=== PATIENT | male | born 1960 | race Caucasian/White ===

== ENCOUNTER 2017-01-06 20:43 | Emergency (ER) | payer OTHER ==
[~2017-01-06] VITALS: Ht 186.7 cm; Wt 108.0 kg
[~2017-01-06 20:43] MED LIST: AUGMENTIN 875 M1 TAB PO; BACTRIM DS 8001 TAB PO; FOLIC ACID 1 MG PO; IRON324 MG PO; MOTRIN 400MG (400 MG PO; MULTIVITAMIN1 TA1 PO; PRILOSEC 20MG C20 MG PO; TRAMADOL50 MG PO; TRIAMCINOL0.1 %/453 TOP; VICODIN5-300 PO; VITAMIN B1100 MG PO
[2017-01-06] MEDS ORDERED: SPIRONOLACTONE100 M1 PO (22:03)
[2017-01-06] MEDS ORDERED: GABAPENTIN300 M2 PO (22:04)
[2017-01-06] MEDS ORDERED: FUROSEMIDE40 M1 PO (22:04)
[2017-01-06 22:09] LABS: ABSOLUTE BASOPHIL COUNT 0 /CUMM (0.0-0.2); ABSOLUTE EOSINOPHIL COUNT 0.1 /CUMM (0.0-0.7); ABSOLUTE GRANULOCYTE CT 6.7 /CUMM (1.4-6.5); ABSOLUTE LYMPH COUNT 0.9 /CUMM (1.2-3.4); ABSOLUTE MONOCYTE COUNT 1.1 /CUMM (0.10-0.60); BASOPHIL % 0.5 % (0.0-2.0); EOSINOPHIL % 0.9 % (0-5); GRANULOCYTE % 76.1 % (42.2-75.2); HEMATOCRIT 30.7 % (42-52); MEAN CORPUSCULAR HGB 27.4 PG (27.0-31.0); MEAN CORPUSCULAR HGB CONC 32.3 G/DL (33.0-37.0); MEAN CORPUSCULAR VOLUME 84.6 FL (80.0-94.0); MEAN PLATELET VOLUME 8.5 FL (7.4-10.4); PLATELET COUNT 255 /CUMM (130-400); RBC DISTRIBUTION WIDTH 16.9 % (11.5-14.5); RED BLOOD CELL CT 3.63 /CUMM (4.70-6.10); WHITE BLOOD CELL COUNT 8.8 /CUMM (4.8-10.8)
[2017-01-06 22:23] LABS: PT 12.4 SEC (9.4-12.5); PTT 30 SEC (25-37)
--- NOTE | 2017-01-06 22:24 | ED GI/GU/ABDOMINAL COMPLAINT ---
History of Present Illness General Chief Complaint: Abdominal Pain/Flank Pain Stated Complaint: NEEDS STOMACH TAPPED Source: patient Exam Limitations: no limitations Vital Signs & Intake/Output Vital Signs & Intake/Output Vital Signs Date Time Temp Pulse Resp B/P B/P Pulse O2 O2 Flow FiO2 Mean Ox Delivery Rate 01/07 2052 99.3 94 20 138/79 94 Room Air ED Intake and Output 01/07 0000 01/06 1200 Intake Total Output Total Balance Patient 238 lb Weight Weight Reported by Patient Measurement Method Allergies Coded Allergies: No Known Allergies (01/06/17) Reconcile Medications AMOXICILLIN/POTASSIUM CLAV (Augmentin 875-125 Tablet) 875 MG/125 MG TAB 1 TAB PO BID CELLULITIS Furosemide 40 MG TABLET 1 TAB PO DAILY FLUID (Reported) Gabapentin 300 MG CAPSULE 1 CAP PO TID NEUROPATHY (Reported) HYDROCODONE/ACETAMINOPHEN (Hydrocodon-Acetaminophen 5-325) 1 EACH TABLET 1 TAB PO Q6HR PRN PAIN Oxycodone HCl 5 MG TABLET 1-2 TAB PO Q6P PRN PAIN Spironolactone 100 MG TABLET 1 TAB PO DAILY RENAL (Reported) Sulfamethoxazole/Trimethopri (Bactrim Ds 800 MG-160 MG) 1 TAB TAB 1 TAB PO BID CELLULITIS TRAMADOL HCL (Tramadol) 50 MG TABLET 1-2 TAB PO Q6H PRN PAIN TRAMADOL HCL (Tramadol) 50 MG TABLET 1 TAB PO TID PRN PAIN Triamcinolone Acetonide (Triamcinolone 0.1% Cream 453 Gm) 0.5 % CREAM..G. 1 AKIN TOP BID rash apply to affected area(s) Triage Note: TRIAGE: PT TO ER C/C "I NEED TO HAVE MY STOMACH TAPPED". HX OF CIRRHOSIS. STATES HAD IT DONE IN [place], [place] ON 01/02. HAS CHRONIC ABD PAIN TO LOW ABD X 6 MONTHS AND UPPER ABD PAIN WHICH STARTED LAST COUPLE DAYS "IT ALWAYS HAPPENS WHEN MY STOMACH GETS BIGGER AND BIGGER". STATES "I NEED A LIVER TRANSPLANT, THEY'RE GONNA PUT ME ON A LIST AT [facility]". Triage Nurses Notes Reviewed? yes Onset: Abrupt Duration: day(s): Timing: recent history Quality/Severity: moderate, severe Radiation: no radiation No Modifying Factors: none HPI: 56-year-old male comes into emergency room with complaints of abdominal distention. Patient has a history of liver cirrhosis. Patient reports that he sees a mountain bike guide primarily up in the exam chair. He reports that he recently has been getting ascites over the last couple months and had a tap done a couple weeks ago. He is down here visiting family reports that he's had recurrent swelling of his abdomen which has caused some difficulty with breathing and some increased pain in his abdomen. Denies any fever chills. Previous alcoholic. Patient has also been diagnosed with hep C. Patient saw Dr. Mathieu harding here a few years ago. History of esophageal varices. Patient is requesting a paracentesis. (LASHANDA HILLMAN) Past History Travel History Traveled to [place] past 21 day No Medical History Any Pertinent Medical History? see below for history Neurological: NONE EENT: NONE Cardiovascular: NONE Respiratory: NONE Gastrointestinal: NONE Hepatic: cirrhosis, hepatitis C Renal: NONE Musculoskeletal: NONE Psychiatric: NONE Endocrine: NONE Blood Disorders: NONE Cancer(s): NONE RENDERER/Reproductive: NONE History of MRSA: No History of VRE: No History of CDIFF: No Surgical History Surgical History: non-contributory Psychosocial History Who do you live with Patient/Self Services at Home None What is your primary language Azeri Tobacco Use: Current Daily Use Daily Tobacco Use Amount/Type: => 5 Cigarettes daily ETOH Use: denies use Illicit Drug Use: denies illicit drug use Family History Family History, If Any: FATHER (Heart Disease). Hx Contributory? No (LASHANDA HILLMAN) Review of Systems Review of Systems Constitutional: Reports: no symptoms. EENTM: Reports: no symptoms. Respiratory: Reports: no symptoms. Cardiovascular: Reports: no symptoms. GI: Reports: see HPI. Genitourinary: Reports: no symptoms. Musculoskeletal: Reports: no symptoms. Skin: Reports: no symptoms. Neurological/Psychological: Reports: no symptoms. Hematologic/Endocrine: Reports: no symptoms. Immunologic/Allergic: Reports: no symptoms. All Other Systems: Reviewed and Negative (LASHANDA HILLMAN) Physical Exam Physical Exam General Appearance: well developed/nourished, alert, awake Head: atraumatic, normal appearance Eyes: Bilateral: normal appearance, EOMI, normal inspection. Ears, Nose, Throat, Mouth: hearing grossly normal, moist mucous membrane Neck: normal inspection, full range of motion Respiratory: normal breath sounds, no respiratory distress Cardiovascular: regular rate/rhythm Gastrointestinal: soft Extremities: normal range of motion Neurologic/Psych: awake, alert, oriented x 3, normal gait Skin: intact, normal color Core Measures ACS in differential dx? No Severe Sepsis Present: No Septic Shock Present: No (LASHANDA HILLMAN) Progress Differential Diagnosis: SBP, ascites, appendicitis, pancreatitis, liver cirrhosis, Plan of Care: Orders Procedure Date/time Status LACTIC ACID 01/07 0049 Active CULTURE,BODY FLUID 01/06 2339 Active BODY FLUID TOTAL PROTEIN 01/06 2339 Active BODY FLUID CELL COUNT 01/06 2339 Active BODY FLUID ALBUMIN 01/06 2339 Active ALBUMIN 01/06 2339 Active PARTIAL THROMBOPLASTIN TIME 01/06 2150 Complete PROTHROMBIN TIME 01/06 2150 Complete URINALYSIS 01/06 2149 Active LIPASE 01/06 2149 Complete LACTIC ACID 01/06 2149 Complete COMPREHENSIVE METABOLIC PANEL 01/06 2149 Complete CBC WITHOUT DIFFERENTIAL 01/06 2149 Complete EKG 01/06 2149 Active Laboratory Tests 01/06/17 234: Fluid WBC Pending, Fld Total RBCs Counted Pending 01/06/172344: Albumin Pending, Fluid Total Protein Pending, Fluid Albumin Pending 01/06/17 2200: Anion Gap 9, Estimated GFR > 60, BUN/Creatinine Ratio 22.5, Glucose 107 H, Lactic Acid 1.5, Calcium 7.7 L, Total Bilirubin 0.6, AST 337 H, ALT 275 H, Alkaline Phosphatase 172 H, Total Protein 5.5 L, Albumin 2.5 L, Globulin 3.0, Albumin/Globulin Ratio 0.8 L, Lipase 199, PT 12.4, INR 1.18 H, APTT 30, CBC w Diff NO MAN DIFF REQ, RBC 3.63 L, MCV 84.6, MCH 27.4, RDW 16.9 H, MPV 8.5, Gran % 76.1 H, Lymphocytes % 10.2 L, Monocytes % 12.3 H, Eosinophils % 0.9, Basophils % 0.5, Absolute Granulocytes 6.7 H, Absolute Lymphocytes 0.9 L, Absolute Monocytes 1.1 H, Absolute Eosinophils 0.1, Absolute Basophils 0, PUBS MCHC 32.3 L Microbiology 01/06 2345 BODY FLUID: Body Fluid Culture - RECD 01/06 2345 BODY FLUID: Gram Stain - RECD Initial ED EKG: normal intervals, normal p-waves, normal QRS complex, normal sinus rhythm, rate (87) (LASHANDA HILLMAN) Departure Departure Disposition: HOME OR SELF CARE Condition: Stable Clinical Impression Primary Impression: Ascites Referrals: NIRAJ AGUSTIN DO (PCP/Family) Additional Instructions: Follow-up with your mountain bike guide. Return if any concerns worsening symptoms. Please go over all results of today's visit with your primary care doctor. Contact your primary care doctor to let them know you were here in the emergency room. There may be nonspecific findings which may not be related to your visit today here in the emergency room but may require further evaluation and chronic monitoring by your primary care doctor. If you had a laceration today the chance of foreign body always remains. You should follow-up with your primary care doctor for recheck in 3-5 days for a wound check. If you had an x-ray done there is a chance that a fracture could have been missed on initial read and you should follow-up with your primary care doctor for repeat x-rays if symptoms persist. If your blood pressure was elevated here in the emergency room please have rechecked by her primary care doctor within the next 48 hours by your primary care doctor. If you were prescribed a narcotic here in the emergency room or any type of controlled substances you're not allowed to drive while taking this medication or operate any type of heavy machinery. Narcotics can make you feel lightheaded dizziness nausea and can cause constipation. You may need to picker tender helper a stool softener. Thank you for choosing [facility] emergency room. Please return to the emergency room immediately if you have any other concerns worsening of symptoms. Departure Forms: Customer Survey General Discharge Information Prescriptions: Current Visit Scripts Oxycodone HCl 1-2 TAB PO Q6P PRN PAIN #15 TAB (LASHANDA HILLMAN) PA/SCRAP DEALER Co-Sign Statement Statement: ED Attending supervision documentation- [X] I saw and evaluated the patient. I have also reviewed all the pertinent lab results and diagnostic results. I agree with the findings and the plan of care as documented in the PA's/SCRAP DEALER's documentation. [X] I have reviewed the ED Record and agree with the PA's/SCRAP DEALER's documentation. [] Additions or exceptions (if any) to the PAs/SCRAP DEALER's note and plan are summarized below: [] (HERI SINGER,QAMAR Welch) Procedures Additional Procedures Progress: Paracentesis, Ultrasound-guided, chlorhexidine prep, 6 mL of 1% lidocaine, sterile technique, peritoneal fluid red clear color, 3 L removed, cytology sent, which culture sent , patient tolerated procedure well, (LASHANDA HILLMAN)
[2017-01-07] MEDS ORDERED: OXYCODONE HCL5 M1 PO (00:19)
[2017-01-07 00:49] VITALS: BP 122/78
== END 2017-01-07 00:50 ==
LOC: ERH 20:43
PROVIDERS: Physician Assistant Medical
DX: R18.8 Other ascites (principal); R06.00 Dyspnea, unspecified; R10.9 Unspecified abdominal pain
CPT/HCPCS: 87075; 93005; 93010

== ENCOUNTER 2017-01-10 16:22 | Emergency (ER) | payer OTHER ==
[~2017-01-10] VITALS: Ht 185.4 cm; Wt 108.9 kg
[~2017-01-10 16:22] MED LIST changes: +FUROSEMIDE40 M1 PO; +GABAPENTIN300 M2 PO; +OXYCODONE HCL5 M1 PO; +SPIRONOLACTONE100 M1 PO
--- NOTE | 2017-01-10 18:17 | ED GI/GU/ABDOMINAL COMPLAINT ---
History of Present Illness General Chief Complaint: General Adult Stated Complaint: PT HAVING PROBLEM WITH HIS STOMACH Source: patient, old records Exam Limitations: no limitations Vital Signs & Intake/Output Vital Signs & Intake/Output Vital Signs Date Time Temp Pulse Resp B/P B/P Pulse O2 O2 Flow FiO2 Mean Ox Delivery Rate 01/10 1852 98.7 90 18 130/75 96 Room Air 01/10 1646 96.9 94 20 127/77 99 Room Air ED Intake and Output 01/11 0000 01/10 1200 Intake Total 60 Output Total Balance 60 Intake, Oral 60 Patient 240 lb Weight Weight Reported by Patient Measurement Method Allergies Coded Allergies: No Known Allergies (01/06/17) Reconcile Medications AMOXICILLIN/POTASSIUM CLAV (Augmentin 875-125 Tablet) 875 MG/125 MG TAB 1 TAB PO BID CELLULITIS Cephalexin (Keflex) 500 MG CAPSULE 1 CAP PO TID INFECTION Furosemide 40 MG TABLET 1 TAB PO DAILY FLUID (Reported) Gabapentin 300 MG CAPSULE 1 CAP PO TID NEUROPATHY (Reported) HYDROCODONE/ACETAMINOPHEN (Hydrocodon-Acetaminophen 5-325) 1 EACH TABLET 1 TAB PO Q6HR PRN PAIN Oxycodone HCl 5 MG TABLET 1 TAB PO BIDP PRN PAIN Oxycodone HCl 5 MG TABLET 1-2 TAB PO Q6P PRN PAIN Spironolactone 100 MG TABLET 1 TAB PO DAILY RENAL (Reported) Sulfamethoxazole/Trimethopri (Bactrim Ds 800 MG-160 MG) 1 TAB TAB 1 TAB PO BID CELLULITIS TRAMADOL HCL (Tramadol) 50 MG TABLET 1-2 TAB PO Q6H PRN PAIN TRAMADOL HCL (Tramadol) 50 MG TABLET 1 TAB PO TID PRN PAIN Triamcinolone Acetonide (Triamcinolone 0.1% Cream 453 Gm) 0.5 % CREAM..G. 1 AKIN TOP BID rash apply to affected area(s) Triage Note: C/O WORSENING ABDOMINAL PAIN AND BLOATING X 5 DAYS. SEEN HERE ON 01/06. HAD PARACENTHESIS DONE. STATES ABDOMEN FEELS HOT WITH WORSENING PAIN. Triage Nurses Notes Reviewed? yes Onset: Gradual Duration: day(s): (4-5) Timing: recent history Quality/Severity: mild, moderate, DISTENTION Location: generalized abdomen Radiation: no radiation Activities at Onset: none No Modifying Factors: none Associated Symptoms: WORSE WITH LYING DOWN HPI: 56 year old male who presents to the ER for worsening abdominal distention. He states he has an apointment at the end of the week in [facility]. He is s/p harvoni treatment [address] Jason lyon. He has had 2 recent paracentesis. . C/o pain at site of previous tap a few days ago. Subjectively warm but no feceres. He ran out of his pain medications and states that if it wasn't for that, that he could wait for paracentesis at the end of the week in [facility]. No shortness of breath but admits to difficulty lying down flat on his back. Past History Travel History Traveled to [facility] past 21 day No Medical History Any Pertinent Medical History? 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 Hx Contributory? No Review of Systems Review of Systems Constitutional: Denies: chills, fever. EENTM: Reports: no symptoms. Respiratory: Reports: short of breath (LYING DOWN). Denies: cough, sputum production. Cardiovascular: Denies: chest pain, palpitations, syncope. GI: Reports: abdominal pain. Denies: diarrhea, nausea, vomiting. Genitourinary: Reports: no symptoms. Musculoskeletal: Reports: no symptoms. Skin: Reports: no symptoms. Neurological/Psychological: Reports: anxiety. Hematologic/Endocrine: Denies: bruising, bleeding, polyuria, polydipsia. Immunologic/Allergic: Denies: splenectomy. All Other Systems: Reviewed and Negative Physical Exam Physical Exam General Appearance: well developed/nourished, alert, awake, mild distress Head: normal appearance, active bleeding Eyes: Bilateral: normal appearance, PERRL, EOMI. Ears, Nose, Throat, Mouth: hearing grossly normal, moist mucous membrane Neck: normal inspection, supple, full range of motion Respiratory: normal breath sounds, chest non-tender, quiet respiration Cardiovascular: regular rate/rhythm Peripheral Pulses: 2+ radial (R), 2+ radial (L) Gastrointestinal: SOFT, DISTENDED, PROTUBERANT, FLUID SHIFT, RLQ SKIN CELLLULITIS NO REBOUND/GUARDING Male Genitals: normal genitalia Extremities: normal range of motion Neurologic/Psych: no motor/sensory deficits, awake, alert, oriented x 3 Skin: intact, normal color, cyanosis Core Measures ACS in differential dx? No Severe Sepsis Present: No Septic Shock Present: No Progress Differential Diagnosis: ASCITES, ABDOMINAL WALL CELLULITIS, CIRRHOSIS Plan of Care: Current Medications Sig/Isabel Start time Last Medication Dose Stop Time Status Admin Cephalexin 500 MG ONCE ONE 01/10 1845 AC (Keflex 500MG Cap) 01/10 1846 Oxycodone HCl 5 MG ONCE ONE 01/10 1845 AC (Roxicodone) 01/10 1846 NO NEED FOR EMERGENT PARACENTESIS. PATIENT WILL FOLLOW UP WITH IR FOR OUTPATIENT PARACENTESIS. POSSIBLE CELLULITIS RIGHT LOWER ABDOMINAL WALL AFTER PARACENTESIS. EXAMINATION NOT CONSISTENT WITH SBP. (CARLOS SIGNER,HIGINIO) Initial ED EKG: none Departure Departure Time of Disposition: 1841 Disposition: HOME OR SELF CARE Condition: Stable Clinical Impression Primary Impression: Ascites Secondary Impressions: Cellulitis Referrals: NIRAJ AGUSTIN DO (PCP/Family) Additional Instructions: FOLLOW UP WITH OUTPATIENT PARACENTESIS TOMORROW. TAKE THE KEFLEX AND OXYCODONE DIRECTED. RETURN WORSE. Departure Forms: Customer Survey General Discharge Information Prescriptions: Current Visit Scripts Cephalexin (Keflex) 1 CAP PO TID #29 CAP Oxycodone HCl 1 TAB PO BIDP PRN PAIN #10 TAB
[2017-01-10] MEDS ORDERED: KEFLEX500 M1 PO (18:41)
[2017-01-10] MEDS ORDERED: OXYCODONE HCL5 M1 PO (18:41)
[2017-01-10 18:52] VITALS: BP 130/75
== END 2017-01-10 18:55 ==
LOC: ERH 16:22
DX: R18.8 Other ascites (principal); L03.311 Cellulitis of abdominal wall